=== PATIENT | male | born 1945 | race Caucasian/White ===

== ENCOUNTER → 2018-11-05 12:21 | Outpatient (CLI) | payer MEDICARE, OTHER, SELFPAY ==
--- NOTE | 2018-11-05 | DI.RAD.S_ITS ---
PROCEDURE: XR THORACIC SPINE 3V INDICATIONS: BACK PAIN TECHNIQUE: 3 views of the thoracic spine were acquired. COMPARISON: None. FINDINGS: Bones: No fractures or dislocations. No suspicious bony lesions. Lateral curvature of the spine is present. Incidentally noted cervical degeneration. Soft tissues: No paravertebral stripe thickening. IMPRESSION: Dextrocurvature of the lower thoracic and levocurvature of the thoracolumbar spine No fracture Dictated by: Ramon Purdy M.D. on 11/05/2018 at 13:56 Approved by: Ramon Purdy M.D. on 11/05/2018 at 13:58
--- NOTE | 2018-11-05 | DI.RAD.S_ITS ---
PROCEDURE: XR LUMBAR SPINE 2-3V INDICATIONS: BACK PAIN TECHNIQUE: 3 views of the lumbar spine were acquired. COMPARISON: [facility], , L-SPINE 2-3 VIEWS, 04/04/2013, 8:40. FINDINGS: Bones: No fracture or focal osseous destruction. Extra scoliosis centered at L3 as before. There is severe multilevel lumbar degeneration and facet arthropathy. No focal osseous destruction seen. Soft tissues: Overlying bowel gas pattern is normal. No suspicious soft tissue calcifications. IMPRESSION: Severe multilevel lumbar disc degeneration and dextroscoliosis as before. No focal osseous destruction. For further evaluation of clinically reported palpable lump/mass, contrast enhanced MRI could be performed for better soft tissue assessment. Dictated by: Ramon Purdy M.D. on 11/05/2018 at 13:58 Approved by: Ramon Purdy M.D. on 11/05/2018 at 13:59
== END ==
PROVIDERS: PCP Internal Medicine; Visit Provider Internal Medicine
DX: M54.9 Dorsalgia, unspecified (principal); M50.30 Other cervical disc degeneration, unspecified cervical region; M51.36 Other intervertebral disc degeneration, lumbar region; M47.816 Spondylosis without myelopathy or radiculopathy, lumbar region; M41.86 Other forms of scoliosis, lumbar region
CPT/HCPCS: 72072; 72100

== ENCOUNTER → 2019-12-18 11:50 | Outpatient (CLI) | payer MEDICARE, OTHER, SELFPAY ==
--- NOTE | 2019-12-18 | DI.MRI.S_ITS ---
PROCEDURE: MR LUMBAR SPINE WO CON INDICATIONS: Lumbar radiculopathy TECHNIQUE: Noncontrast sagittal T1 spin echo and T2 fast echo, sagittal STIR, axial T1 and T2 fast spin echo through the lumbar spine. In cases with scoliosis, additional coronal T2 fast spin echo may be performed. COMPARISON: [facility], CR, XR THORACIC SPINE 3V, 11/05/2018, 12:28. [facility], CR, XR LUMBAR SPINE 2-3V, 11/05/2018, 12:28. [facility], CR, L-SPINE 2-3 VIEWS, 04/04/2013, 8:40. FINDINGS: Image quality: Excellent. Alignment and Curvature: S-shaped scoliotic curvature is seen. There is minimal retrolisthesis of L1-L2. There is mild retrolisthesis at L2-L3, mild anterolisthesis at L3-L4, and mild retrolisthesis L4-L5 and L5-S1. Bone Marrow: Marrow is of normal overall signal. No acute vertebral body compression fractures. Spinal Cord: Conus medullaris terminates at the L1 level. Visualized cord demonstrates normal signal and size. Paraspinous Soft Tissues: No paravertebral masses. T12-L1: Mild to moderate loss of disc height and disc signal can be seen. No significant neural foraminal or central canal narrowing can be seen. L1-L2: Moderate to severe loss of disc height and disc signal are seen. Reactive marrow endplate changes are seen which are hypointense on T1-weighted imaging and hyperintense on T2 weighted imaging, which is most consistent with edema (Modic type I changes). Bridging endplate osteophytes are seen. Moderate bilateral neural foraminal narrowing is seen at this level. Moderate central canal narrowing is seen. L2-L3: At least moderate loss of disc height and disc signal can be seen. Bridging endplate osteophytes are seen. Moderate generalized disc bulge is seen. Zlzh-ze-lxoppapp facet hypertrophy is seen. There is at least moderate left-sided and moderate right-sided neural foraminal narrowing seen. Moderate to severe central canal narrowing is seen, as on series 6 image 15. L3-L4: Moderate to severe loss of disc height and disc signal are seen. Moderate disc bulge is seen, which is eccentric to the left side. Moderate to prominent facet hypertrophy is seen. There is moderate to severe left-sided neural foraminal narrowing seen, with associated compression upon the exiting left L3 nerve root. There is mild to moderate right-sided neural foraminal narrowing and moderate to severe central canal narrowing is seen, as on series 6 image 20. L4-L5: At least moderate loss of disc height and disc signal can be seen. At least moderate disc bulge is seen. There is a central disc protrusion seen. At least moderate facet hypertrophy is seen. There is moderate to severe bilateral neural foraminal narrowing seen. There is a degree of compression seen upon the exiting nerve roots. Severe central canal narrowing is seen, as on series 6 image 25. L5-S1: At least moderate loss of disc height and disc signal can be seen at this level. Moderate disc bulge is seen, which is eccentric to the left side. There is mild to moderate right-sided and mild left-sided facet hypertrophy seen. There is moderate to severe right-sided neural foraminal narrowing seen, with a degree of compression upon the exiting right L5 nerve root. Moderate left-sided neural foraminal narrowing is seen. Mild to moderate central canal narrowing is seen. IMPRESSION: Multiple levels of lumbar spine degenerative change are seen, which are overall most prominent at the L4-L5 level. Several levels of the exiting nerve root compression can be seen. Dictated by: Wilmer Hoang M.D. on 12/18/2019 at 12:06 Approved by: Wilmer Hoang M.D. on 12/18/2019 at 12:13
== END ==
PROVIDERS: Family Provider Internal Medicine; PCP Internal Medicine; Referring Provider Internal Medicine; Visit Provider Internal Medicine
DX: M47.26 Other spondylosis with radiculopathy, lumbar region (principal); M47.27 Other spondylosis with radiculopathy, lumbosacral region
CPT/HCPCS: 72148

== ENCOUNTER → 2020-08-06 09:53 | Outpatient (CLI) | payer MEDICARE, OTHER, SELFPAY ==
[2020-08-09 07:39] LABS: COVID19 Sendout Not Detected (Not Detect)
== END ==
PROVIDERS: Family Provider Internal Medicine; PCP Internal Medicine; Visit Provider Physician Assistant
DX: Z11.59 Encounter for screening for other viral diseases (principal)
CPT/HCPCS: 87635

== ENCOUNTER 2020-08-09 07:59 | Day surgery (SDC) | payer MEDICARE, OTHER, SELFPAY ==
[2020-08-09 08:21] VITALS: BP 135/79; PULSE 62; RESP 16; TEMP 36.2; O2SAT 99; BMI 24.3
[2020-08-09] MEDS: LACTATED RINGERS 1,000 ML 200 ML IV (08:29)
--- NOTE | 2020-08-09 09:07 | PM.HP.1 ---
History of Present Illness History of Present Illness Date Patient Seen: 08/09/20 Time Patient Seen: 09:07 Chief complaint: SCREENING COLONOSCOPY Narrative: The patient presents for colorectal sreening. If had previously normal colonoscopy last one 10 years ago.. No personal or family history of colon cancer. On further history denies any recent gastrointestinal symptoms. No nausea, vomiting, abdominal pain, loss of appetite, unexplained weight loss, change in bowel habits, diarrhea, constipation, melena, hematochezia, or bright red blood per rectum. Patient History Surgical History H/O arthroscopic knee surgery (Acute) Family & Social History Social History: household members spouse Tobacco & Substance use: Smoking Status Never smoker alcohol intake former Substance Use Type does not use Meds Home Medications and Allergies Home Medications Medication Instructions Recorded Confirmed Type sodium,potassium,mag sulfates 17.5 177 ml PO DAILY #354 ml 07/26/20 08/09/20 Rx gram-3.13 gram-1.6 gram oral soln Allergies Allergy/AdvReac Type Severity Reaction Status Date / Time No Known Drug Allergies Allergy Verified 08/09/20 08:16 Review of Systems Review of Systems Narrative: A 10 point review of systems is negative except as noted in the HPI Exam Vital Signs (past 8 hours): - 08/09/20 08:21 Temperature 97.2 F L Pulse Rate 62 Respiratory Rate 16 Blood Pressure 135/79 Pulse Oximetry 99 Oxygen Delivery Method Room Air Narrative Exam Narrative: General-no acute distress, well nourished adult male HEENT-moist mucous membranes, no scleral icterus Neck-supple, no lymphadenopathy Chest- non labored respirations, clear to auscultation bilaterally Cardiac-regular rate no peripheral edema Abdomen-soft, nontender, non distended Extremities-warm, well perfused Neurological-alert and oriented, no focal deficits Assessment & Plan Assessment & Plan narrative: The patient requires colorectal screening and colonoscopy is recommended. Technical details were discussed. Risks, benefits, alternatives explained. Risks including but not limited to myocardial infarction, aspiration, bleeding, pain, missed lesion, incomplete examination, need for further radiographic studies, colonic perforation, and need for major abdominal surgery were discussed. All questions were answered to their satisfaction, and they are in agreement with this plan.
[2020-08-09] MEDS: fentaNYL 250 MCG/5 ML INJ IV (09:21)
[2020-08-09] MEDS: MIDAZOLAM 5 MG/5 ML VIAL IV (09:21)
[2020-08-09 09:42] VITALS: BP 133/75; PULSE 65; RESP 13; TEMP 36.2; O2SAT 100
--- NOTE | 2020-08-09 09:42 | PM.OP.ENDO ---
Operative Date/Time/Diagnoses Date of procedure: 08/09/20 Time of procedure: 09:42 Pre-op diagnosis: screening colonoscopy Post-op diagnosis: same Procedure & Clinicians Study performed: colonoscopy Same procedure as scheduled: Yes Indications: 75M screening colonoscopy last colonoscopy 10 yrs ago Surgeon: Oscar Hernandez Procedure Notes SCOAP/Timeout: Performed Procedure in detail: Patient placed in left lateral recumbent position. Time out was performed. Procedural sedation was administered with Versed and Fentanyl. Examination began with a thorough inspection of the perianal area there was no evidence of fissures, fistulae, external hemorrhoids or cutaneous malignancy. The colonoscopy scope was then placed into the rectum the the lumen was insufflated with air. The scope was carefully advanced forward. Ultimately the cecum was intubated and confirmed by identification of the ileocecal valve, the appendiceal orifice and the confluence of the taenia. The scope was then slowly withdrawn examining colon thoroughly in all directions. In the rectum the rectal columns were identified and retroflexion of the scope was performed for inspection of the distal rectum and anal canal. The colonoscopy was notable for the followin. Quality of the preparation-excellent 2. No masses or polyps 3. Grade 2 internal hemorrhoids Scope withdrawal time: 10 Sedation minutes: 26 Findings: internal hemorrhoids Specimen(s): none sent Complications: none Impression: Normal colonoscopy Post-procedure Recommendations: Colonscopy in 10 years Disposition: same day surgery
[2020-08-09 09:47] VITALS: BP 126/63; PULSE 65; RESP 13; O2SAT 98
[2020-08-09 09:52] VITALS: BP 122/69; PULSE 60; RESP 13; O2SAT 100
[2020-08-09 09:55] VITALS: BP 119/65; PULSE 53; RESP 15; O2SAT 100
[2020-08-09 10:11] VITALS: BP 115/76; PULSE 60; RESP 17; TEMP 36.6; O2SAT 99
== END 2020-08-09 10:15 | disposition home or self-care (01) ==
PROVIDERS: Family Provider Internal Medicine; PCP Internal Medicine; Referring Provider Internal Medicine; Visit Provider Surgery
PROC: 0DJD8ZZ Inspection of Lower Intestinal Tract, Via Natural or Artificial Opening Endoscopic (ICD-10-PCS; CPT 45378; principal; 2020-08-09 09:15)
DX: Z12.11 Encounter for screening for malignant neoplasm of colon (principal); K64.0 First degree hemorrhoids
CPT/HCPCS: G0121; 99152; 99153; J2250; J3010

== ENCOUNTER → 2022-03-17 10:10 | Outpatient (CLI) | payer MEDICARE, OTHER, SELFPAY ==
[2022-03-17 11:10] LABS: Add Manual Diff / Slide Review NO; Basophils Absolute Auto 0 /uL (0-100); Basophils Percent Auto 0.8 % (0-2); Eosinophils Absolute Auto 200 /uL (0-450); Eosinophils Percent Auto 5.3 % (2-4); Hematocrit 40.2 % (41-53); Hemoglobin 13.6 g/dL (13.5-17.5); Lymphocytes Absolute Auto 900 /uL (1100-4500); Lymphocytes Percent Auto 21.4 % (25-40); Mean Corpuscular HGB Conc 33.9 % (30-36); Mean Corpuscular Hemoglobin 30.9 PG (26-34); Monocytes Absolute Auto 400 /uL (0-900); Neutrophils Absolute Auto 2800 /uL (1500-7000); Neutrophils Percent Auto 63.5 % (50-75); Platelet Count 210 X10^3/uL (150-400); Red Blood Cell Count 4.41 X10^6/uL (4.5-5.9); Red Cell Distribution Width 13.7 % (11.6-14.8); White Blood Cell Count 4.4 X10^3/uL (4.5-11.0)
[2022-03-18 04:19] LABS: HEMOLYSIS < 15 (0-50)
[2022-03-18 04:31] LABS: Alanine Aminotransferase 14 IU/L (<50); Albumin 4.1 g/dL (3.5-5.0); Albumin Globulin Ratio 1.7 (1.0-2.8); Alkaline Phosphatase 59 U/L (38-126); Aspartate Aminotransferase 34 IU/L (17-59); BUN Creatinine Ratio 27.4 (6-22); Bilirubin Total 1.2 mg/dL (0.2-1.3); Blood Urea Nitrogen 29 mg/dL (9-20); Calcium 9.1 mg/dL (8.4-10.2); Carbon Dioxide 28 mmol/L (22-32); Chloride 103 mmol/L (98-107); Cholesterol 154 mg/dL (140-199); Estimated Glomerular Filt Rate > 60 mL/min (>60); Globulin 2.4 g/dL (1.7-4.1); Glucose 89 mg/dL (80-110); HDL Cholesterol 54 mg/dL (40-60); LDL Cholesterol Calculated 89 mg/dL (<100); Potassium 4.5 mmol/L (3.4-5.1); Sodium 138 mmol/L (137-145); Total Protein 6.5 g/dL (6.3-8.2); Triglycerides 54 mg/dL (35-150)
[2022-03-19 16:09] LABS: Prostate Specific Antigen Scrn 3.26 ng/mL (0.1-4.0)
== END ==
PROVIDERS: Family Provider Internal Medicine; PCP Family Medicine; Referring Provider Family Medicine; Visit Provider Family Medicine
DX: M54.9 Dorsalgia, unspecified (principal); Z13.220 Encounter for screening for lipoid disorders; Z12.5 Encounter for screening for malignant neoplasm of prostate; G89.29 Other chronic pain; Z00.00 Encounter for general adult medical examination without abnormal findings
CPT/HCPCS: 36415; 80053; 80061; 85025; G0103

== ENCOUNTER → 2023-04-05 10:21 | Outpatient (CLI) | payer MEDICARE, OTHER, SELFPAY ==
--- NOTE | 2023-04-05 10:23 | DI.RAD.S_ITS ---
PROCEDURE: XR LUMBAR SPINE 2-3V INDICATIONS: eval and treat back pain TECHNIQUE: 3 views of the lumbar spine were acquired. COMPARISON: [facility], CR, XR LUMBAR SPINE 2-3V, 11/05/2018, 12:28. FINDINGS: Bones: 5 guf-mfk-wjiquja vertebrae are present. There is rightward scoliotic curvature with apex at L3. Multilevel moderate to severe degenerative disc space narrowing is present. Multilevel degenerative disc space narrowing, moderate to severe from L3-4 through L5-S1. No vertebral body compression fractures. No suspicious bony lesions. Soft tissues: Overlying bowel gas pattern is normal. No suspicious soft tissue calcifications. IMPRESSION: Multilevel moderate to severe disc and foraminal narrowing as well as scoliotic curvature relatively unchanged. Dictated by: Belkis Hernandez M.D. on 04/05/2023 at 14:19 Approved by: Belkis Hernandez M.D. on 04/05/2023 at 14:19
[2023-04-05 12:19] LABS: Add Manual Diff / Slide Review NO; Basophils Absolute Auto 0 /uL (0-100); Basophils Percent Auto 0.8 % (0-2); Eosinophils Absolute Auto 200 /uL (0-450); Hematocrit 41.7 % (41-53); Hemoglobin 14.2 g/dL (13.5-17.5); Lymphocytes Absolute Auto 1000 /uL (1100-4500); Lymphocytes Percent Auto 19.9 % (25-40); Mean Corpuscular Hemoglobin 30.7 PG (26-34); Mean Corpuscular Volume 90.3 fL (80-100); Monocytes Absolute Auto 400 /uL (0-900); Monocytes Percent Auto 8.4 % (3-14); Neutrophils Absolute Auto 3500 /uL (1500-7000); Neutrophils Percent Auto 67.9 % (50-75); Platelet Count 229 X10^3/uL (150-400); Red Blood Cell Count 4.62 X10^6/uL (4.5-5.9); Red Cell Distribution Width 13.5 % (11.6-14.8); White Blood Cell Count 5.1 X10^3/uL (4.5-11.0)
[2023-04-05 12:33] LABS: Alanine Aminotransferase 19 IU/L (<50); Albumin 4.3 g/dL (3.5-5.0); Albumin Globulin Ratio 1.7 (1.0-2.8); Alkaline Phosphatase 64 U/L (38-126); Aspartate Aminotransferase 35 IU/L (17-59); BUN Creatinine Ratio 27.2 (6-22); Blood Urea Nitrogen 28 mg/dL (9-20); Calcium 9.2 mg/dL (8.4-10.2); Carbon Dioxide 29 mmol/L (22-32); Chloride 101 mmol/L (98-107); Estimated Glomerular Filt Rate > 60 mL/min (>60); Globulin 2.5 g/dL (1.7-4.1); Glucose 94 mg/dL (80-110); HEMOLYSIS < 15 (0-50); Potassium 4.1 mmol/L (3.4-5.1); Sodium 137 mmol/L (137-145); Total Protein 6.8 g/dL (6.3-8.2)
[2023-04-05 13:00] LABS: Prostate Specific Antigen Scrn 3.65 ng/mL (0.1-4.0)
== END ==
PROVIDERS: Family Provider Internal Medicine; PCP Family Medicine; Referring Provider Family Medicine; Visit Provider Family Medicine
DX: M54.9 Dorsalgia, unspecified (principal); Z12.5 Encounter for screening for malignant neoplasm of prostate; G89.29 Other chronic pain; N40.1 Benign prostatic hyperplasia with lower urinary tract symptoms; R35.1 Nocturia; Z00.00 Encounter for general adult medical examination without abnormal findings
CPT/HCPCS: 36415; 72100; 80053; 85025; G0103

== ENCOUNTER → 2024-08-21 10:31 | Outpatient (CLI) | payer MEDICARE, OTHER, SELFPAY ==
--- NOTE | 2024-08-21 10:33 | DI.RAD.S_ITS ---
PROCEDURE: XR T AND L SPINE 2 TO 3 VIEWS INDICATIONS: eval scoliosis TECHNIQUE: 2 views acquired of the thoracolumbar spine. COMPARISON: [facility], CR, XR THORACIC SPINE 3V, 11/05/2018, 12:28. FINDINGS: Diffuse osseous demineralization. The heart size and cardiomediastinal silhouette are within normal limits. There is no focal lung consolidation, pneumothorax, or pleural effusion. On the abdominal views, there is no radiographic evidence of pneumoperitoneum. A nonobstructive bowel gas pattern is present. Pelvic phleboliths are present. Please note that the cervical spine is not in the field of view on this examination. The thoracic and lumbar vertebral body heights are preserved. There is mild straightening of the thoracic kyphosis and lumbar lordosis. Scoliosis measurements: * Levocurvature of the thoracolumbar junction with the apex at L1 and Squires angle of 8.6? measured from the superior endplate of T11 and inferior endplate of L3. * Dextrocurvature of the lumbar spine with the apex at L3 and Squires angle of 16.6? measured from the superior endplate of L1 and inferior endplate of L5. * Coronal balance: 0 cm * Sagittal balance: Positive 6.8 cm * Pelvic obliquity: 3.2?, with the left iliac crest being higher than the right IMPRESSION: Scoliosis measurements noted above. Dictated by: Twin Mulligan M.D. on 08/22/2024 at 14:35 Approved by: Twin Mulligan M.D. on 08/22/2024 at 14:47
[2024-08-21 11:20] LABS: Add Manual Diff / Slide Review NO; Basophils Absolute Auto 0 /uL (0-100); Basophils Percent Auto 0.7 % (0-2); Eosinophils Absolute Auto 200 /uL (0-450); Eosinophils Percent Auto 4.1 % (2-4); Hematocrit 45.4 % (41-53); Hemoglobin 15.1 g/dL (13.5-17.5); Lymphocytes Absolute Auto 1200 /uL (1100-4500); Lymphocytes Percent Auto 20.3 % (25-40); Mean Corpuscular HGB Conc 33.3 % (30-36); Mean Corpuscular Hemoglobin 30.7 PG (26-34); Mean Corpuscular Volume 92.2 fL (80-100); Monocytes Absolute Auto 500 /uL (0-900); Monocytes Percent Auto 8.8 % (3-14); Neutrophils Absolute Auto 3900 /uL (1500-7000); Neutrophils Percent Auto 66.1 % (50-75); Platelet Count 215 X10^3/uL (150-400); Red Blood Cell Count 4.92 X10^6/uL (4.5-5.9); Red Cell Distribution Width 13.6 % (11.6-14.8); White Blood Cell Count 5.8 X10^3/uL (4.5-11.0)
[2024-08-21 11:51] LABS: Alanine Aminotransferase 18 IU/L (<50); Albumin 4.5 g/dL (3.5-5.0); Alkaline Phosphatase 64 U/L (38-126); Aspartate Aminotransferase 38 IU/L (17-59); Bilirubin Total 1.4 mg/dL (0.2-1.3); Blood Urea Nitrogen 25 mg/dL (9-20); Calcium 9.8 mg/dL (8.4-10.2); Carbon Dioxide 28 mmol/L (22-32); Chloride 103 mmol/L (98-107); Estimated Glomerular Filt Rate > 60 mL/min (>60); Globulin 2.2 g/dL (1.7-4.1); Glucose 98 mg/dL (80-110); HEMOLYSIS < 15 (0-50); Potassium 4.6 mmol/L (3.4-5.1); Sodium 137 mmol/L (137-145); Total Protein 6.7 g/dL (6.3-8.2)
[2024-08-21 12:20] LABS: Prostate Specific Antigen Scrn 3.67 ng/mL (0.1-4.0)
== END ==
LOC: LAB 10:33
PROVIDERS: Family Provider Internal Medicine; PCP Family Medicine; Referring Provider Family Medicine; Visit Provider Family Medicine
DX: Z00.00 Encounter for general adult medical examination without abnormal findings (principal); R35.1 Nocturia; Z12.5 Encounter for screening for malignant neoplasm of prostate; M47.816 Spondylosis without myelopathy or radiculopathy, lumbar region; N40.1 Benign prostatic hyperplasia with lower urinary tract symptoms; M41.25 Other idiopathic scoliosis, thoracolumbar region; H91.93 Unspecified hearing loss, bilateral; C44.229 Squamous cell carcinoma of skin of left ear and external auricular canal
CPT/HCPCS: 36415; 72082; 80053; 85025; G0103

== ENCOUNTER → 2024-09-02 13:39 | Outpatient (CLI) | payer MEDICARE, OTHER, SELFPAY ==
--- NOTE | 2024-09-02 13:41 | DI.MRI.S_ITS ---
PROCEDURE: MR LUMBAR SPINE WO CON INDICATIONS: eval scoliosis TECHNIQUE: Noncontrast sagittal T1 spin echo and T2 fast echo, sagittal STIR, and T2 fast spin echo through the lumbar spine. In cases with scoliosis, additional coronal T2 fast spin echo may be performed. COMPARISON: [facility], MR, MR LUMBAR SPINE WO CON, 12/18/2019, 12:13. [facility], CR, XR T AND L SPINE 2 TO 3 VIEWS, 08/21/2024, 10:51. FINDINGS: Image quality: Diagnostic, with note made of motion artifact. Alignment and Curvature: There is moderate dextroconvex lumbar scoliosis. There is minimal retrolisthesis seen at L1-L2, with mild retrolisthesis at L2-L3. Mild grade 1 anterolisthesis is seen at L3-L4. Minimal retrolisthesis is seen at L4-L5 and at L5-S1. Bone Marrow: Marrow is of normal overall signal. No acute vertebral body compression fractures. Spinal Cord: Conus medullaris terminates at the L1 level. Visualized cord demonstrates normal signal and size. Paraspinous Soft Tissues: No paravertebral masses. T12-L1: Lzuv-bi-[id number] loss of disc height and disc signal can be seen. Mild generalized disc bulge is seen. There is a superimposed central disc protrusion. No neural foraminal narrowing is seen. Mild central canal narrowing is seen. The degree of central canal narrowing is slightly progressed compared to 2019. L1-L2: Moderate to severe loss of disc height and disc signal can be seen. Reactive marrow endplate changes are seen which are hypointense on T1-weighted imaging and hyperintense on T2 weighted imaging, which is most consistent with edema (Modic type I changes). Moderate disc bulge is seen, which is eccentric to the right. There is a central disc osteophyte protrusion. Moderate bilateral neural foraminal narrowing is seen. Moderate central canal narrowing is seen. These imaging findings have progressed compared to the prior study. L2-L3: Moderate to severe loss of disc height and disc signal can be seen. Reactive marrow endplate changes are seen which are hypointense on T1-weighted imaging and hyperintense on T2 weighted imaging, which is most consistent with edema (Modic type I changes). Moderate disc bulge is seen at this level. There is a central disc osteophyte protrusion. Mild facet joint hypertrophy is seen. There is at least moderate left-sided and icbi-lp-jwabymrv right-sided neural foraminal narrowing. At least moderate central canal narrowing is seen, as on series 6, image 15. These imaging findings have progressed compared to the prior study. L3-L4: Moderate to severe loss of disc height and disc signal can be seen on the left side. Reactive marrow endplate changes are seen, which demonstrate mixed T1 weighted and T2-weighted signal, and are attributed to a combination of edema and fatty metaplasia (Modic type I and Modic type II changes). Moderate disc bulge is seen, which is eccentric to the left. There is a left foraminal disc osteophyte protrusion seen. At least moderate facet hypertrophy is seen. There is at least moderate right-sided and moderate to severe left-sided neural foraminal narrowing. There is a degree of compression seen upon the exiting nerve roots. At least moderate central canal narrowing is seen. These degenerative changes are worse than in 2020. L4-L5: Moderate to severe loss of disc height and disc signal can be seen. Reactive marrow endplate changes are seen which are hypointense on T1-weighted imaging and hyperintense on T2 weighted imaging, which is most consistent with edema (Modic type I changes). Moderate disc bulge is seen, with a central disc osteophyte protrusion. At least moderate facet hypertrophy is seen. Associated hypertrophy of the ligamentum flavum can be seen. There is moderate to severe bilateral neural foraminal narrowing seen, with an associated degree of compression seen upon the exiting nerve roots. There is severe central canal narrowing seen, as on series 6, image 25. These imaging findings have progressed compared to the prior study. L5-S1: Moderate to severe loss of disc height and disc signal can be seen. Moderate disc bulge is seen, with a central disc osteophyte protrusion. There is moderate right-sided and [id number] left-sided facet hypertrophy. There is moderate to severe right-sided neural foraminal narrowing, with at least moderate left-sided neural foraminal narrowing. There is a degree of compression seen upon the exiting nerve roots. Moderate central canal narrowing is seen. There is mild progression of degenerative change compared to the prior. IMPRESSION: Multiple levels of significant lumbar spine degenerative change can be seen, which are progressed compared to 2020. There is moderate dextroconvex lumbar scoliosis, which also appears progressed compared to 2020. Dictated by: Wilmer Hoang M.D. on 09/02/2024 at 16:49 Approved by: Wilmer Hoang M.D. on 09/02/2024 at 16:55
== END ==
PROVIDERS: Family Provider Internal Medicine; PCP Family Medicine; Referring Provider Family Medicine; Visit Provider Family Medicine
DX: Z00.00 Encounter for general adult medical examination without abnormal findings (principal); M47.816 Spondylosis without myelopathy or radiculopathy, lumbar region; M47.817 Spondylosis without myelopathy or radiculopathy, lumbosacral region; M41.9 Scoliosis, unspecified
CPT/HCPCS: 72148

== ENCOUNTER → 2025-03-09 06:56 | Outpatient (CLI) | payer MEDICARE, OTHER, SELFPAY ==
[2025-03-09 07:56] LABS: Alanine Aminotransferase 14 IU/L (<50); Albumin 4.2 g/dL (3.5-5.0); Alkaline Phosphatase 62 U/L (38-126); Aspartate Aminotransferase 30 IU/L (17-59); BUN Creatinine Ratio 29.4 (6-22); Bilirubin Total 1.2 mg/dL (0.2-1.3); Blood Urea Nitrogen 30 mg/dL (9-20); Calcium 9.3 mg/dL (8.4-10.2); Carbon Dioxide 27 mmol/L (22-32); Chloride 104 mmol/L (98-107); Estimated Glomerular Filt Rate > 60 mL/min (>60); Globulin 2.1 g/dL (1.7-4.1); Glucose 92 mg/dL (70-99); HEMOLYSIS < 15 (0-50); Potassium 3.9 mmol/L (3.4-5.1); Sodium 138 mmol/L (137-145); Total Protein 6.3 g/dL (6.3-8.2)
[2025-03-09 08:24] LABS: Prostate Specific Antigen Scrn 4.23 ng/mL (0.1-4.0)
== END ==
PROVIDERS: Family Provider Internal Medicine; PCP Family Medicine; Referring Provider Family Medicine; Visit Provider Family Medicine
DX: Z12.5 Encounter for screening for malignant neoplasm of prostate (principal); N40.1 Benign prostatic hyperplasia with lower urinary tract symptoms; R35.1 Nocturia
CPT/HCPCS: 36415; 80053; G0103